=== PATIENT | female | born 1935 | race Caucasian/White ===

== ENCOUNTER → 2016-11-09 | Outpatient (CLI) | payer MEDICARE, OTHER ==
--- NOTE | ~2016-11-09 | ECH ---
Transthoracic Echocardiography Report (TTE) Demographics Patient Name DUSTY THOMPSON Date of Study 11/09/2016 Patient Number [id number] Visit Number [id number] Date of 1935 Room Number Accession Number [id number] Gender Female Age 81 year(s) Referring Janette Espitia MD Tube Winder [facility] Physician Physician Interpreting Rafael Poole MD [employer] Machine Operator Physician Supervising Ordering Physician Janette Espitia MD, MD/P Nurse Stress [employer] Man Conclusions Summary Technically fair exam. The estimated left ventricular ejection fraction is 60-65%. Moderate left ventricular hypertrophy. Diastolic assessment reveals Grade I diastolic dysfunction. The left atrium is mildly dilated by LA volume index measurement. There is no evidence of patent foramen ovale or atrial septal defect by color Doppler. No significant valvular abnormalities. Procedure Type of Study TTE procedure:Echo Complete SF. Procedure Date Date: 11/09/2016 Start: 09:20 AM Technical Quality: Adequate visualization Additional Indications:retinal hemorrhage Appropriate Use Criteria: 7 Height: 62 inches Weight: 165 pounds BSA: 1.76 m Rhythm: Within normal limits HR: 72 bpm BP: 108/79 mmHg M-Mode/2D Measurements LV Diastolic Dimension: 3.29 cm LV Systolic Dimension: 2.35 cm LV Septum Diastolic: 1.64 cm LV PW Diastolic: 1.43 cm AO Root Dimension: 2.56 cm Cardiac Output: 5.09 l/min LA Dimension: 4.08 cm Cardiac Index: 2.89 l/min*m LA volume index: 35 ml/m LVOT: 1.86 cm RV Base: 3.45 cm LVOT VTI: 26.03 cm RV Mid: 2.49 cm LV Stroke volume: 70.69 ml RV Length: 6.54 cm LV Stroke volume index: 40.16 ml/m TAPSE: 2.28 cm TDI-S': 8 cm/s Doppler Measurements AV Peak Velocity: 1.15 m/s MV Peak E-Wave: 0.78 m/s AV Peak Gradient: 5.29 mmHg MV Peak A-Wave: 1.01 m/s AV Mean Gradient: 2.8 mmHg MV E/A Ratio: 0.77 LVOT Peak Velocity: 1.15 m/s MV P1/2t: 92.1 msec AV Area (Continuity):2.58 cm MV Deceleration Time: 310.8 msec TR Velocity:2.71 m/s MV Area (PHT): 2.39 cm TR Gradient:29.38 mmHg Estimated RAP:5 mmHg Estimated PASP: 34.38 mmHg Estimated RVSP: 34 mmHg RA Area: 11.43 cm Findings Left Ventricle The left ventricle is normal in size . Moderate left ventricular hypertrophy. Diastolic assessment reveals Grade I diastolic dysfunction. Right Ventricle Normal right ventricle structure and function. Left Atrium The left atrium is mildly dilated by LA volume index measurement. There is no evidence of patent foramen ovale or atrial septal defect by color Doppler. Right Atrium Normal right atrial size. Mitral Valve Normal mitral valve structure and function. Mild mitral regurgitation by color Doppler. Aortic Valve The aortic valve is mildly sclerotic. Tricuspid Valve Normal tricuspid valve structure and function. Mild tricuspid regurgitation by color Doppler. Estimated pulmonary pressures within normal limits, Pulmonic Valve Normal pulmonic valve structure and function. Mild pulmonic valve regurgitation by color Doppler. Pericardial Effusion No evidence of pericardial effusion. Miscellaneous Visualized portions of the aortic root and ascending aorta appear normal in size. Pleural Effusion No evidence of pleural effusion. Signature
== END | disposition home or self-care (01) ==
LOC: CARD 11-07 10:06
DX: H35.63 Retinal hemorrhage, bilateral (principal); I65.23 Occlusion and stenosis of bilateral carotid arteries